=== PATIENT | male | born 1960 | race Caucasian/White ===

== ENCOUNTER 2017-09-28 20:16 | Emergency (ER) | payer BC ==
[~2017-09-28] VITALS: Ht 203.2 cm; Wt 116.1 kg
[2017-09-28 20:19] VITALS: BP 132/78
== END 2017-09-28 21:36 | disposition home or self-care (01) ==
LOC: ER 20:16
DX: R60.9 Edema, unspecified (principal)
CPT/HCPCS: 93971; 99284; A4606; Z7610